=== PATIENT | female | born 1980 | race Asian ===

== ENCOUNTER 2016-09-12 02:25 | Emergency (ER) | payer MEDICAID, OTHER ==
[~2016-09-12] VITALS: Ht 157.5 cm; Wt 53.6 kg
[2016-09-12 03:31] VITALS: BP 129/81
[2016-09-12] MEDS ORDERED: NAPHAZOLINE/PHENIR 0.025-0.3% 15 ML OPHTHALMIC SOLUTION OD ONE (03:45)
[2016-09-12] MEDS ORDERED: DiphenhydrAMINE HCL 50 MG CAPSULE PO ONE (04:00)
== END 2016-09-12 04:20 | disposition home or self-care (01) ==
LOC: EMS 02:28
DX: H10.11 Acute atopic conjunctivitis, right eye (principal); L53.9 Erythematous condition, unspecified
CPT/HCPCS: 99283